=== PATIENT | female | born 1990 | race Hispanic/Latino ===

== ENCOUNTER 2023-07-05 10:00 | Inpatient (IN) | payer OTHER, SELFPAY ==
[~2023-07-05] VITALS: Ht 160 cm; Wt 68.0 kg
[2023-07-05 12:01] LABS: BASOPHILS # (AUTO) 0.02 K/uL (0.00-0.20); BASOPHILS % (AUTO) 0.2 % (0.0-5.0); EOSINOPHILS # (AUTO) 0.05 K/uL (0.00-0.70); EOSINOPHILS % (AUTO) 0.5 % (0.0-8.0); HEMATOCRIT 41.3 % (36-48); IMMATURE GRANULOCYTE ABSOLUTE 0.04 K/uL (0-1); LYMPHOCYTES # (AUTO) 2.7 K/uL (1.0-4.8); LYMPHOCYTES % (AUTO) 24.7 % (21.0-51.0); MEAN CORPUSCULAR HEMOGLOBIN 28.9 pg (27.0-33.0); MEAN CORPUSCULAR HGB CONC 33.7 g/dL (32.0-36.0); MEAN CORPUSCULAR VOLUME 85.9 fL (79-99); MONOCYTES # (AUTO) 0.9 K/uL (0.1-1.0); MONOCYTES % (AUTO) 8.1 % (3.0-13.0); NEUTROPHILS # (AUTO) 7.2 K/uL (1.8-7.7); NEUTROPHILS % (AUTO) 66.1 % (40.0-77.0); PLATELET COUNT (AUTO) 282 K/uL (130-400); RED BLOOD CELL COUNT(AUTO) 4.81 MIL/uL (4.00-5.50); RED CELL DISTRIBUTION WIDTH 14.6 % (11.0-15.5); WHITE BLOOD COUNT (AUTO) 10.8 K/uL (4.8-10.8)
[2023-07-06] MEDS ORDERED: CALDOLOR 800MG+NS 250ML 250 ML IV PRN (06:30)
[2023-07-06] MEDS ORDERED: LACTATED RINGERS 1000ML 1,000 ML IV SCH (06:30)
[2023-07-06] MEDS ORDERED: CEFAZOLIN SODIUM 1 GM VIAL IVPB PRN (06:30)
[2023-07-06] MEDS ORDERED: AZITHROMYCIN 500MG+NS 250ML IVPB ONE ×2 (07:30→07:48)
[2023-07-06 07:47] LABS: RAPID PLASMA REAGIN NONREACTIVE (NONREACTIVE)
[2023-07-06] MEDS ORDERED: CEFAZOLIN SODIUM 2 GM VIAL IVPB PRN ×2 (07:49→08:00)
[2023-07-06] MEDS ORDERED: FENTANYL CITRATE PF 50 MCG/1 ML 2ML VIAL ONE (07:59)
[2023-07-06] MEDS ORDERED: MORPHINE PF 100MG/10ML AMP IV ONE (07:59)
[2023-07-06] MEDS ORDERED: ONDANSETRON 4MG INJ ONE (08:15)
[2023-07-06] MEDS ORDERED: AZITHROMYCIN 500MG VIAL IVPB ONE (08:30)
[2023-07-06] MEDS ORDERED: PHENYLEPHRINE HCL 10 MG/ML 1ML VIAL IV ONE (08:31)
[2023-07-06] MEDS ORDERED: KETOROLAC 30MG VIAL (30MG/ML) ONE (09:15)
[2023-07-06] MEDS ORDERED: 0.9%NACL 10ML VIAL IVP PRN (10:00)
[2023-07-06] MEDS ORDERED: PROMETHAZINE HCL 25 MG/ML 1ML AMPULE IM PRN (10:00)
[2023-07-06] MEDS ORDERED: MEPERIDINE-PF 75 MG/ML SYG IM PRN (10:00)
[2023-07-06] MEDS ORDERED: OXYTOCIN-LR 30 UNITS/500ML 500 ML IV PRN (10:00)
[2023-07-06 16:23] VITALS: BP 123/67; PULSE 90; RESP 18
[2023-07-06 19:35] VITALS: BP 123/74; PULSE 59; RESP 18
[2023-07-06] MEDS: CALDOLOR 800MG+NS 250ML 250 ML IV SCH (21:08)
[2023-07-06 23:45] VITALS: BP 111/60; PULSE 60; RESP 18
[2023-07-07] MEDS ORDERED: SIMETHICONE 80 MG TAB.CHEW PO PRN
[2023-07-07] MEDS ORDERED: HYDROCODONE/ACETAMINOPHEN 5/325 MG TAB PO PRN
[2023-07-07] MEDS ORDERED: IBUPROFEN 600 MG TABLET PO PRN
[2023-07-07] MEDS ORDERED: ACETAMINOPHEN WITH CODEINE 1 TAB TAB PO PRN
[2023-07-07] MEDS ORDERED: DIPH,PERTUSS(ACELL),TET VAC/PF 0.5 ML VIAL IM SCH
[2023-07-07] MEDS ORDERED: BISACODYL 10 MG SUPP.RECT RC PRN
[2023-07-07] MEDS ORDERED: ACETAMINOPHEN 500 MG TABLET PO PRN
[2023-07-07] MEDS: DEXTROSE 5 %-0.45 % NACL 1,000 ML IV PRN ×2 (01:05→09:38)
[2023-07-07] MEDS: CALDOLOR 800MG+NS 250ML 250 ML IV SCH (04:33)
[2023-07-07 05:03] VITALS: BP 127/68; PULSE 70; RESP 16
[2023-07-07 06:50] LABS: HEMATOCRIT 35.9 % (36-48); MEAN CORPUSCULAR HEMOGLOBIN 28.9 pg (27.0-33.0); MEAN CORPUSCULAR HGB CONC 33.4 g/dL (32.0-36.0); MEAN CORPUSCULAR VOLUME 86.5 fL (79-99); RED BLOOD CELL COUNT(AUTO) 4.15 MIL/uL (4.00-5.50); RED CELL DISTRIBUTION WIDTH 14.6 % (11.0-15.5); WHITE BLOOD COUNT (AUTO) 10.8 K/uL (4.8-10.8)
[2023-07-07 08:00] VITALS: BP 121/82; PULSE 72; RESP 18
[2023-07-07] MEDS: DOCUSATE SODIUM 100 MG CAP PO SCH ×2 (09:38→20:56)
[2023-07-07] MEDS: IBUPROFEN 800 MG TAB PO SCH ×2 (09:39→18:05)
[2023-07-07 11:18] VITALS: BP 132/87; PULSE 67; RESP 18
[2023-07-07] MEDS ORDERED: MEASLES/MUMPS/RUBELLA VACCINE, LIVE 0.5 ML/VIAL SQ ONE (13:01)
[2023-07-07 16:00] VITALS: BP 123/82; PULSE 91; RESP 18
[2023-07-07 20:30] VITALS: BP 131/85; PULSE 79; RESP 18
[2023-07-07] MEDS: LANOLIN 30GM OINTMENT TP PRN ×2 (20:57→20:58)
[2023-07-07 23:37] VITALS: BP 136/75; PULSE 63; RESP 20
[2023-07-08] MEDS: IBUPROFEN 800 MG TAB PO SCH (02:04)
[2023-07-08 03:04] VITALS: TEMP 98.8
[2023-07-08 04:26] VITALS: BP 122/90; PULSE 75; RESP 20
[2023-07-08 08:00] VITALS: BP 131/74; PULSE 72; RESP 18
[2023-07-08] MEDS: DOCUSATE SODIUM 100 MG CAP PO SCH (09:08)
== END 2023-07-08 12:15 | disposition home or self-care (01) | DRG 788 ==
LOC: UNDOADMIN 10:38 → DAHIP 10:38 → LDH 07-06 06:04 → WSH 07-06 13:17
PROVIDERS: ADMIT Obstetrics & Gynecology; ATTEND Obstetrics & Gynecology
PROC: 10D00Z1 Extraction of Products of Conception, Low, Open Approach (ICD-10-PCS; principal; 2023-07-06 08:00)
DX: O98.82 Other maternal infectious and parasitic diseases complicating childbirth (principal); O69.81X0 Labor and delivery complicated by cord around neck, without compression, not applicable or unspecified; O34.211 Maternal care for low transverse scar from previous cesarean delivery; Z37.0 Single live birth; Z3A.39 39 weeks gestation of pregnancy
CPT/HCPCS: 36415; 59510; 85025; 85027; 86592; 86701; 86850; 86900; 86901; 87340; 87390; 90707; 90715; A4344; G0378; J0456; J1741; J1885; J2274; J2371; J2405; J3010; J7120; A4248; A4510; C1765